=== PATIENT | female | born 1990 | race Caucasian/White ===

== ENCOUNTER 2016-12-19 06:13 | Emergency (ER) | END 2016-12-19 09:13 | disposition home or self-care (01) | DX: N20.0 Calculus of kidney (principal) | CPT/HCPCS: 36415; 74176; 80053; 81001; 83690; 85025; 96374; 96375; J2270; J2405; Z7502 ==

== ENCOUNTER 2018-03-04 17:47 | Inpatient (IN) | END 2018-03-07 14:55 | disposition home or self-care (01) | DRG 788 ==